=== PATIENT | male | born 1960 | race Caucasian/White ===

== ENCOUNTER 2020-11-30 23:06 | Emergency (ER) | payer OTHER ==
[2020-11-30 23:15] VITALS: RESP 18; TEMP 98.9
[2020-11-30] MEDS ORDERED: HYDROmorphone 1 MG/ML 1 ML SYRINGE IVP STA (23:19)
--- NOTE | 2020-11-30 23:37 | XR ---
EXAMINATION TYPE: XR hand complete LT DATE OF EXAM: 11/30/2020 COMPARISON: NONE HISTORY: Trauma. Pain. TECHNIQUE: 3 views FINDINGS: There is severely comminuted fractures of the head of the fifth metacarpal and also the bas e of the proximal phalanx of the little finger. This could be a crush injury. There is no dislocation . There is minimal soft tissue air. The other metacarpals and phalanges appear intact. IMPRESSION: Comminuted fractures on both sides of the fifth MP joint.
[2020-11-30] MEDS ORDERED: DIPH,PERTUS(ACELL)TETVAC-LF 0.5 ML VIAL IM ONE (23:38)
--- NOTE | 2020-11-30 23:57 | ED ---
Upper Extremity HPI - General Chief Complaint: Extremity Injury, Upper Stated Complaint: Injury, Left hand extremity Time Seen by Provider: 11/30/20 23:12 Source: EMS, RN notes reviewed, old records reviewed Mode of arrival: EMS Limitations: no limitations - History of Present Illness Initial Comments: This is a 60-year-old male DF for evaluation. Patient presents from work with work related injury, crush injury of left hand. Patient has inability to move left finger, minimal bleeding from all small [place] laceration and no other injuries noted. Patient denies drugs or alcohol has no other complaints MD Complaint: Injury to:: left, hand, finger -: minutes(s) Other Extremity Injury: Fingers: Left, Hand: Left Other Injuries: none Handedness: right Place: work Severity scale (1-10): 10 Improves With: none Worsens With: movement of extremity Context: direct blow Associated Symptoms: denies other symptoms - Related Data Allergies Allergy/AdvReac Type Severity Reaction Status Date / Time No Known Allergies Allergy Verified 11/30/20 23:19 Review of Systems ROS Statement: Those systems with pertinent positive or pertinent negative responses have been documented in the HPI. ROS Other: All systems not noted in ROS Statement are negative. Past Medical History Past Medical History: Hypertension History of Any Multi-Drug Resistant Organisms: None Reported Past Surgical History: No Surgical Hx Reported Past Psychological History: No Psychological Hx Reported Smoking Status: Former smoker Past Alcohol Use History: None Reported Past Drug Use History: None Reported General Exam - General Exam Comments Initial Comments: GCS of 15, there is pain trachea is midline breath sounds are equal bilaterally Limitations: no limitations General appearance: alert, in no apparent distress Head exam: Present: atraumatic, normocephalic, normal inspection Eye exam: Present: normal appearance, PERRL, EOMI. Absent: scleral icterus, conjunctival injection, periorbital swelling ENT exam: Present: normal exam, mucous membranes moist Neck exam: Present: normal inspection. Absent: tenderness, meningismus, lymphadenopathy Respiratory exam: Present: normal lung sounds bilaterally. Absent: respiratory distress, wheezes, rales, rhonchi, stridor Cardiovascular Exam: Present: regular rate, normal rhythm, normal heart sounds. Absent: systolic murmur, diastolic murmur, rubs, gallop, clicks GI/Abdominal exam: Present: soft, normal bowel sounds. Absent: distended, tenderness, guarding, rebound, rigid Extremities exam: Present: normal inspection, full ROM, normal capillary refill. Absent: tenderness, pedal edema, joint swelling, calf tenderness Left General: Present: abrasion (Small laceration to palmar aspect of left hand) Hand Wrist exam: Present: tenderness, swelling, laceration. Absent: full ROM (Patient unable able to move left fifth digit) Neuro motor exam: Present: wrist extension intact, thumb opposition intact Neurosensory exam: Present: ulnar nerve intact, median nerve intact Vascular: Present: normal capillary refill, radial pulse, ulnar pulse Back exam: Present: normal inspection Neurological exam: Present: alert, oriented X3, CN II-XII intact Psychiatric exam: Present: normal affect, normal mood Skin exam: Present: warm, dry, intact, normal color. Absent: rash Course Vital Signs 11/30/20 23:11 Temperature 98.9 F Pulse Rate 97 Respiratory 18 Rate Blood Pressure 166/100 O2 Sat by Pulse 97 Oximetry - Reevaluation(s) Reevaluation #1: 11/30/20 23:54 Medical record is reviewed Reevaluation #2: 11/30/20 23:54 Or so surgery contacted at this hospital, recommended transfer Reevaluation #3: 11/30/20 23:54 Patient does have pain control Reevaluation #4: 11/30/20 23:56 decision made to transfer [facility] blood work re severity of injury and threat of limb loss - Consultations Consultation #1: Spoke with Dr. Klaus Garrett who accepts transfer Medical Decision Making - Medical Decision Making 60 male who presents to the ER with work related with crushed finger left hand, left MCP joint. Multiple comminuted fractures. Patient be transferred for orthopedic evaluation and treatment - Radiology Data Radiology results: report reviewed (X-ray left hand does show MP joints fractures), image reviewed Critical Care Time Critical Care Time: Yes Total Critical Care Time: 31 Disposition Clinical Impression: Crushing injury of left hand Disposition: OTHER INSTITUTION NOT DEFINED Condition: Good Is patient prescribed a controlled substance at d/c from ED?: No Referrals: None,Stated [Primary Care Provider] - 1-2 days - Out of Hospital Transfer - Req. Specs Out of Hospital Transfer - Requested Specifics: Other Emergency Center ([facility])
[2020-12-01] MEDS ORDERED: HYDROmorphone 1 MG/ML 1 ML SYRINGE IVP STA (00:16)
[2020-12-01 00:26] VITALS: BP 156/94; PULSE 91
== END 2020-12-01 00:40 | disposition other institution (70) ==
LOC: EC 23:06
DX: S67.22XA Crushing injury of left hand, initial encounter (principal); S62.397A Other fracture of fifth metacarpal bone, left hand, initial encounter for closed fracture; S62.617A Displaced fracture of proximal phalanx of left little finger, initial encounter for closed fracture; S61.412A Laceration without foreign body of left hand, initial encounter; Z87.891 Personal history of nicotine dependence; Z23 Encounter for immunization; Y99.0 Civilian activity done for income or pay; X58.XXXA Exposure to other specified factors, initial encounter
CPT/HCPCS: 73130; 90715; 99285; 96365; 96375; 96376; 90471; J0690; J1170 ×2